=== PATIENT | female | born 1965 | race Asian ===

== ENCOUNTER → 2020-09-30 | Outpatient (CLI) | payer BC ==
--- NOTE | 2020-09-30 16:13 | RAD ---
Examination: 2 views of the right shoulder HISTORY: History of shoulder pain COMPARISON: None available FINDINGS: The humerus head is within the glenoid. Mild joint space loss identified in the joint in the glenohum eral joint, acromioclavicular joint likely degenerative changes. IMPRESSION: 1. No acute osseous findings. 2. Mild degenerative changes glenohumeral joint, acromioclavicular joint. Electronically signed by: Oscar Logan MD (09/30/2020 4:11 PM) [id number]
== END ==
LOC: RAD 15:23
PROVIDERS: ATTEND Orthopaedic Surgery
DX: M19.011 Primary osteoarthritis, right shoulder (principal)
CPT/HCPCS: 73030